=== PATIENT | male | born 1950 | race Caucasian/White ===

== ENCOUNTER 2022-06-15 16:54 | Day surgery (SDC) | payer MEDICARE, BC ==
[~2022-06-15] VITALS: Ht 177.8 cm; Wt 88.1 kg
[2022-06-15] MEDS ORDERED: NORVASC 10MG10 MG PO (17:12)
[2022-06-15] MEDS ORDERED: ASPIRIN 81M81 MG/TA2 PO (17:12)
[2022-06-15] MEDS ORDERED: BYSTOLIC10 MG PO (17:12)
[2022-06-15] MEDS ORDERED: ZESTRIL 20MG TA20 MG PO (17:13)
[2022-06-15] MEDS ORDERED: CRESTOR5 MG PO (17:13)
[2022-06-15] MEDS ORDERED: FLOMAX 0.40.4 MG/CAP PO (17:13)
[2022-06-15 17:37] VITALS: BP 122/70; PULSE 57; TEMP 99.2
--- NOTE | 2022-06-15 18:33 | NUR ---
Pt left for procedure at this time.
[2022-06-15 19:35] VITALS: BP 139/77; PULSE 79; TEMP 98.5
[2022-06-16] VITALS: BP 127/66; PULSE 60; TEMP 97.7
--- NOTE | 2022-06-16 01:19 | NUR ---
PATIENT ARRIVES FROM SURGERY AT THIS TIME. PATIENT IS ALERT AND ORIENTED AT THIS TIME. PATIENT DENIES PAIN BUT STATES HE IS HUNGRY. THIS NURSE PROVIDES CRACKERS AT THIS TIME. THIS NURSE INFORMS PATIENT IF CRACKERS ARE KEPT DOWN, A LUNCH BOX WILL BE OBTAINED. PATIENT STATES UNDERSTANDING AND APPRECIATION. PATIENT IS RESTING IN BED WITH HIS AT BEDSIDE. PATIENT DENIES FURTHER CONCERNS AT THIS TIME. PATIENT AND SPOUSE EDUCATED AND ORIENTED TO ROOM. CALL LIGHT IS WITHIN REACH OF PATIENT.
[2022-06-16 04:18] VITALS: BP 120/54; PULSE 54; TEMP 98.1
--- NOTE | 2022-06-16 05:27 | NUR ---
PATIENT IS RESTING IN BED WITH EYES CLOSED. PATIENT HAS HAD AN UNEVENTFUL NIGHT WITH NO COMPLAINTS OF PAIN OR DISTRESS THIS SHIFT. PATIENT MOSLEY CONTINUES TO BE SHARP RED. PATIENT HAS NO SIGNS OF PAIN OR DISTRESS AT THIS TIME. CALL LIGHT IS WITHIN REACH OF PATIENT.
[2022-06-16 06:27] LABS: CALCIUM 8.8 mg/dL (8.4-10.2); CREATININE, serum 1.18 mg/dL (0.72-1.25); POTASSIUM 4.4 mmol/L (3.5-4.5)
[2022-06-16 07:16] VITALS: BP 125/62; PULSE 55; TEMP 98
--- NOTE | 2022-06-16 09:29 | NUR ---
Initial visit; Patient very nice, thanked [employer] for coming in and wishing him well and offering God's blessings.
--- NOTE | 2022-06-16 10:55 | NUR ---
textile pin worker met with patient to complete intake and discuss discharge plan. Patient reports that he lives at home with his Chanel ([phone]) in [place]. He is independent with his ADL's and does not utilize any DME to assist with mobility. He has no home oxygen needs. PCP is and he utilizes [facility] for prescriptions. 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 Patient is planning on returning home with no concerns. DIscharge plan: Home
[2022-06-16 11:14] VITALS: BP 121/65; PULSE 58; TEMP 97.9
--- NOTE | 2022-06-16 11:27 | NUR ---
VSS, PT A&O X4, ABLE TO MAKE NEEDS KNOWN, PT RESTING IN BED, DENIES PAIN, MOSLEY IN PLACE, BRIGHT RED/DARK RED URINE WITH SEVERAL CLOTS NOTED, FALL PRECAUTIONS IN PLACE, CALL LIGHT IN REACH
[2022-06-16 16:31] VITALS: BP 153/67; PULSE 51; TEMP 98.3
== END 2022-06-16 18:53 | disposition home or self-care (01) ==
LOC: SDCO 16:54 → MEDICAL 16:56 → SDCO 06-16 18:53
PROVIDERS: Urology
DX: N20.1 Calculus of ureter (principal); N17.9 Acute kidney failure, unspecified; N40.0 Benign prostatic hyperplasia without lower urinary tract symptoms; Z79.899 Other long term (current) drug therapy
CPT/HCPCS: OP; A9284; C1769; C2617; J0171; J0690; J1100; J1885; J2405; J2704; J3010; J7120; Q9967